=== PATIENT | female | born 1945 | race Caucasian/White ===

== ENCOUNTER 2017-02-04 21:23 | Emergency (ER) | payer OTHER ==
[~2017-02-04] VITALS: Ht 149.9 cm; Wt 67.1 kg
[2017-02-04 21:47] VITALS: BP 116/57
--- NOTE | 2017-02-04 23:39 | NUR ---
TO ER BED 1 FROM [facility]
--- NOTE | 2017-02-04 23:40 | NUR ---
PATIENT PRESENTS TO ED WITH FEVER. PT TOOK IBUPROFEN AND NORCO AT 9PM. PT DENIES N/V/D; SKIN IS PINK/WARM/DRY; AAOX4 WITH EVEN AND STEADY GAIT; LUNGS CLEAR BL; HR EVEN AND REGULAR; PT DENIES ANY CP, SOB, OR COUGH AT THIS TIME; PATIENT STATES PAIN OF 0/10 AT THIS TIME; VSS; PATIENT POSITIONED FOR COMFORT; HOB ELEVATED; BEDRAILS UP X2; BED DOWN. ER MD MADE AWARE OF PT STATUS.
--- NOTE | 2017-02-05 00:11 | NUR ---
Patient being evaluated by physician.
--- NOTE | 2017-02-05 00:31 | NUR ---
Patient discharged with v/s stable. Written and verbal after care instructions given and explained. Patient alert, oriented and verbalized understanding of instructions. Wheel Chair Assisted with to home. All questions addressed prior to discharge. ID band removed. Patient advised to follow up with PMD. Rx of CIPRO given. Patient educated on indication of medication including possible reaction and side effects. Opportunity to ask questions provided and answered.
[2017-02-05 00:32] VITALS: BP 126/61
== END 2017-02-05 00:32 | disposition home or self-care (01) ==
LOC: MED 21:23
DX: N39.0 Urinary tract infection, site not specified (principal); Z88.6 Allergy status to analgesic agent; Z96.642 Presence of left artificial hip joint
CPT/HCPCS: 81002; 99283